=== PATIENT | male | born 2000 | race Caucasian/White ===

== ENCOUNTER 2021-07-30 11:44 | Emergency (ER) | payer OTHER, SELFPAY ==
[2021-07-30 12:50] VITALS: BP 117/60; PULSE 78; RESP 18; TEMP 36.7; O2SAT 98; BMI 25.4
--- NOTE | 2021-07-30 13:07 | HMH.EDUTC ---
[facility] [place] Clinical Impression: Cerumen impaction Qualifiers: Laterality: bilateral Qualified Code(s): H61.23 - Impacted cerumen, bilateral Disposition: Home, Self-Care Condition on Discharge: Good Instructions: DI for Cerumen Impaction Additional Instructions: follow up with Family Doctor if no improvement or any worsening of symptoms Return if needed Straight to ER if any life threatening symptoms Referrals: Provider,Referral, [Primary Care Provider] - Medical Decision Making - Gabriele Inquiry Pt receiving controlled substance: No Gabriele was queried for this patient: No Vital Signs: 07/30/21 12:50 Temperature 98.0 F Temperature Source Oral Pulse Rate [Right Brachial] 78 Respiratory Rate 18 Blood Pressure [Right Arm] 117/60 Blood Pressure Mean [Right Arm] 79 Blood Pressure Source [Right Arm] Automatic Cuff Blood Pressure Position [Right Arm] Sitting 02 Sat by Pulse Oximetry 98 Oxygen Delivery Method Room Air [facility] [place] - General Stated complaint: ear pain Time Seen by Provider: 07/30/21 13:07 Mode of Arrival: Ambulatory Source of Information: Patient Limitations: No Limitations Description of Symptoms (Recalled from Triage Doc. by RN): PATIENT C/O FLUID/WAX IN EARS WITH PAIN AND DECREASED HEARING HEENT Symptoms (Recalled from RN notes): Yes Resp Symptoms (Recalled from RN notes): No Skin Symptoms (Recalled from RN notes): No MS Symptoms (Recalled from RN notes): No Functional Status (Recalled from RN notes): WNL - History of Present Illness Provider Complaint: Patient states that he feels like his ears are stopped up with wax States that they get that way at times and he has to get them cleaned out States that today he felt like he could barely hear so he came in - Related Data Home Medications Medication Instructions Recorded Confirmed Desmopressin Acetate 3 tab PO HS 07/30/21 07/30/21 Allergies Allergy/AdvReac Type Severity Reaction Status Date / Time No Known Allergies Allergy Verified 07/30/21 13:07 - Worker's Comp Is this a Worker's Comp case?: No [facility] History - Hepatitis A Screen Drug use history?: No High risk sexual behaviors?: No History of sexually transmitted infection?: No Currently employed?: No Childcare worker?: No Do you have indoor plumbing?: Yes Do you have electricity?: Yes Attestation statement:: This patient has been screened for Hepatitis A risk factors. I have reviewed the patient's past medical history: Yes ROS Obtained: Yes All systems reviewed & no additional complaints, Yes Systems reviewed as appropriate & no additional complaints - Constitutional Constitutional: Reports system reviewed and no additional complaints, except as docu - ENT Ears, Nose, Mouth, and Throat: Reports system reviewed and no additional complaints, except as docu, Reports other (feeling of fullness in bilateral ears with decreased hearing) Physical Exam - General General appearance: alert, in no apparent distress - Expanded ENT Exam TM/Canal exam: Bilateral TM: cerumen impaction - Respiratory Respiratory exam: Present: normal lung sounds bilaterally. Absent: respiratory distress - Cardiovascular Cardiovascular exam: Present: regular rate, normal rhythm. Absent: JVD - Neurological Exam Neurological exam: Present: alert, oriented X3 Procedures - Ear Wax Removal Both Ears Cerumenolytic Used: other Results: Re-examined: cerumen removed completely TM Examination: TM(s) intact, normal appearance Ear Canal Exam: atraumatic Patient Tolerated Procedure: well, no complications Complications: no problems Technique: ear canal irrigated
[2021-07-30 13:53] VITALS: BP 117/60; PULSE 78; RESP 18; TEMP 36.7; O2SAT 98
== END 2021-07-30 13:58 | disposition home or self-care (01) ==
PROVIDERS: Emergency Provider Nurse Practitioner
DX: H61.23 Impacted cerumen, bilateral (principal)
CPT/HCPCS: 99213; G0463